=== PATIENT | male | born 1940 | race Caucasian/White ===

== ENCOUNTER → 2023-07-26 08:25 | Outpatient (REF) | payer MEDICARE, BC, SELFPAY ==
[2023-07-26 10:49] LABS: ALT (SGPT) 18 U/L (0-50); AST (SGOT) 29 U/L (17-59); Albumin 4.4 g/dl (3.5-5.0); Alkaline Phosphatase 47 U/L (38-126); Blood Urea Nitrogen 30 mg/dl (9-20); Calcium 9.2 mg/dl (8.4-10.2); Carbon Dioxide 30 mmol/L (22-30); Glucose 85 mg/dl (70-99); HDL Cholesterol 41 mg/dl; LDL Cholesterol, Calculated 26 mg/dl; Potassium 3.1 mmol/L (3.5-5.1); Sodium 139 mmol/L (135-145); Total Bilirubin 2.6 mg/dl (0.2-1.3); Total Cholesterol 82 mg/dl (50-199); Total Protein 7.1 g/dl (6.3-8.2); Triglyceride 79 mg/dl (10-149); Very Low Density Lipoprotein 15 mg/dl (0-30); eGFR > 60.00
[2023-07-26 10:54] LABS: Chloride 101 mmol/L (98-107)
== END ==
LOC: HWLAB 08:25
PROVIDERS: ATTENDING PHYSICIAN Internal Medicine Cardiovascular Disease; FAMILY PHYSICIAN Family Medicine
DX: I25.10 Atherosclerotic heart disease of native coronary artery without angina pectoris (principal)
CPT/HCPCS: 36415; 80053; 80061

== ENCOUNTER 2023-10-14 22:19 | Emergency (ER) | payer MEDICARE, BC, SELFPAY ==
[2023-10-14 22:19] VITALS: BMI 25.0
[2023-10-14 22:26] VITALS: BP 112/65
[2023-10-14 22:47] LABS: % Basophils 0.6 % (0-2); % Eosinophils 2.4 % (0-6); % Immature Granulocytes 0.5 % (0-0.5); % Lymphocytes 31.7 % (20.5-51.1); % Monocytes 9.4 % (1.7-9.3); % Neutrophils 55.4 % (42.2-75.2); Absolute Basophils 0.1 10^3/uL (0-0.2); Absolute Eosinophils 0.2 10^3/uL (0-0.7); Absolute Lymphocytes 2.6 10^3/uL (1.2-3.4); Absolute Monocytes 0.8 10^3/uL (0.1-0.6); Absolute Neutrophils 4.5 10^3/uL (1.4-6.5); Hematocrit 39.3 % (39.0-52.0); Hemoglobin 14.2 g/dL (13.0-18.0); Mean Corp Hgb Conc. 36.1 g/dL (33.0-37.0); Mean Corpuscular Hgb 31.6 pg (27.0-31.0); Mean Corpuscular Volume 87.3 fL (80.0-94.0); Mean Platelet Volume 10.2 fL (7.4-10.4); Nucleated Red Blood Cells % 0 % (-); Platelet Count 215 10^3/uL (130-400); Red Cell Dist. Width 13.2 % (11.5-14.5); White Blood Cell Count 8.2 10^3/uL (4.8-10.8)
[2023-10-14 23:10] LABS: ALT (SGPT) 21 U/L (0-50); AST (SGOT) 30 U/L (17-59); Albumin 4.3 g/dl (3.5-5.0); Alkaline Phosphatase 37 U/L (38-126); Blood Urea Nitrogen 31 mg/dl (9-20); Calcium 9.6 mg/dl (8.4-10.2); Carbon Dioxide 27 mmol/L (22-30); Chloride 102 mmol/L (98-107); Estimated Creatinine Clearance 71 ml/min; Glucose 105 mg/dl (70-99); Potassium 3.4 mmol/L (3.5-5.1); Sodium 139 mmol/L (135-145); Total Bilirubin 1.5 mg/dl (0.2-1.3); Total Protein 7.1 g/dl (6.3-8.2); eGFR > 60.00
[2023-10-14 23:13] LABS: Troponin I < 0.012 ng/ml
--- NOTE | 2023-10-14 23:22 | ED.GENMED ---
History of Present Illness
General
Chief Complaint: Chest Pain
Source: patient
Exam Limitations: none
Time Seen by Provider: 10/14/23 22:39
Travel History
Have you had any contact with someone who has COVID-19?: No
Do you have any symptoms of coronavirus? Fever > 100 degrees, chills, cough, shortness of breath, sore throat, loss of taste or smell, muscle aches, or headache?: No
History of Present Illness
History of Present Illness:
This is a 83 year old male that comes in with c/o right sided chest pain. States that around 7-7:30pm he started with this right sided chest pain. States that this only last seconds and it comes and goes. States that when he takes a deep breath he
had increased pain. States that he has no pain on the left side. States that at 8;30pm he took a nitro. States that when EMS got there he was given a second nitro and 4 baby aspirin. States that it still comes and goes but he is pain free now.
States that this is the same type of pain that he had in the past when he had an SC. Denies any fever, chills, SOB, abd pain, nausea, vomiting, diarrhea, headache, dizziness, urinary burning.
Past History
Past History
ED Past Medical History: Cancer (Basal cell skin ), COPD, GERD, HTN, Hypercholesterolemia, SC, Psychiatric (Anxiety) and Other (Sleep apnea Bipap, Pancreatitis, Rosacia)
ED Past Surgical History: Cardiac (Stent), Cholecystectomy, Orthopedic (Spinal fusion X 2), Urological (TURP) and Other (Cataracts, Hernia)
Social History
Tobacco: Former smoker
Alcohol: None
Drug: None
Personal:
Living: with family
Employment: Retired
Family History
Family History: Other
Review of Systems
Review of Systems
All Other Systems: ROS reviewed and negative except as documented in HPI and ROS
Constitutional: Reports no symptoms; Denies fever or chills
EENT: Reports no symptoms
Respiratory: Reports no symptoms; Denies cough or trouble breathing
Cardiac: Reports chest pain
ABD/GI: Reports no symptoms; Denies abdominal pain, nausea, vomiting or diarrhea
: Reports no symptoms; Denies dysuria, frequency or urgency
Musculoskeletal: Reports no symptoms
Skin: Reports no symptoms
Neurological: Reports no symptoms; Denies dizzy or headache
Psychiatric: Reports no symptoms
Phy Exam
General Physical Exam
General Presentation: no apparent distress
General age: appears stated age
General Skin: warm and dry
General Habitus: elderly
General Mental: alert
General Hydration: appears well hydrated
ENT Exam
ENT Exam: TM's normal, pharynx normal and neck supple
Eye Exam
Eye Exam: EOMI
Cardiovascular Exam
Cardiovascular Exam: regular rate/rhythm, no edema, no murmur and normal peripheral pulses
Pulmonary Exam
Pulmonary Exam: lungs clear, no respiratory distress, no rales, chest non tender, no crackles, no rhonchi, no wheezing and no cough
Gastrointestinal Exam
Gastrointestinal Exam: normal bowel sounds, non tender, soft, no organomegaly, no pulsatile mass and non distended
Musculoskeletal Exam
Musculoskeletal Exam: full ROM and no edema
Skin Exam
Skin Exam: normal color, warm/dry, no rash and no petechia
Psychiatric Exam
Psychiatric Exam: normal mood/affect
Scores
Heart Score for Chest Pain Patients
STEMI patient?: No
History: Slightly or Non-Suspicious
ECG: Normal
Age: >/= 65 years
Risk Factors: >/= 3 Risk Factors or History of CAD
Troponin: </= Normal Limit
Heart Score for Chest Pain Patients: 4
Heart Score Risk: 20.3% MACE over next 6 weeks
Course
Orders/Labs/Results
Orders:
Orders
10/14/23 22:20
Electrocardiogram (*1) Urgent
Reason for Study: Chest Pain
Cardiac Monitoring- Treatment ONCE
EKG- Treatment ONCE
IV Insert/Care/Rem.- Treatment PRN
O2 Therapy [RESP] Urgent
Titrate/Wean O2 to maintain O2 sat greater than (%): 90
Special Instructions: Maintain sats >/=90%
Pulse Ox/spot Check [RESP] Urgent
Quantity: 1
Special Instructions: ON ROOM AIR
10/14/23 22:39
Complete Blood Count/With Diff Urgent
Comprehensive Metabolic Panel Urgent
Troponin I Urgent
10/14/23 23:21
EKG- Treatment ONCE
10/14/23 23:22
CR Chest - 2 Views Urgent
Comment:
Reason For Exam: Chest pain right sided
10/14/23 23:25
D-Dimer Urgent
10/15/23 01:27
Troponin I Urgent
10/15/23 01:30
Electrocardiogram (*1) Urgent
Reason for Study: Chest Pain
Other Reason for Exam: Repeat with Troponin
Abnormal Lab Results
10/14/23
22:39
RBC 4.50 L 10^6/uL
(4.70-6.10)
MCH 31.6 H pg
(27.0-31.0)
Absolute Monos (auto) 0.8 H 10^3/uL
(0.1-0.6)
Monocytes % 9.4 H %
(1.7-9.3)
Potassium 3.4 L mmol/L
(3.5-5.1)
BUN 31 H mg/dl
(9-20)
Glucose 105 H mg/dl
(70-99)
Total Bilirubin 1.5 H mg/dl
(0.2-1.3)
Alkaline Phosphatase 37 L U/L
(38-126)
10/14/23 22:39
10/14/23 22:39
Dehydration, Glucose nonfasting, Total mariajose slightly elevated. Troponin <0.012, D-dimer negative at 0.47
Second Troponin <0.012
Vital Signs
Initial and Last Documented VS:
Initial Vital Signs
Temp Pulse Resp BP Pulse Ox
98.8 F 52 18 112/65 96
10/14/23 22:26 10/14/23 22:26 10/14/23 22:26 10/14/23 22:26 10/14/23 22:26
Last Documented Vital Signs
Temp Pulse Resp BP Pulse Ox
98.8 F 49 15 110/49 96
10/14/23 22:26 10/15/23 00:30 10/15/23 00:30 10/15/23 00:05 10/15/23 00:30
Robotic Maintenance Technician consulted with Physician
Robotic Maintenance Technician consulted with physician?: Yes
Name of Physician Consulted: Dr Arteaag
MDM/Problems Addressed
Differential Diagnosis Includes:
PE, Musculoskeletal chest wall pain. Coronary syndrome
MDM/Problems Addressed:
This is a 83 year old male that comes in with c/o right sided chest pain that comes and goes. States that he took Nitro at home and then he was given Nitro by EMS and baby aspirin. State that this is similar to when he had a heart attack.
Will get labs, ECG, chest x-ray.
Repeat ECG: rate 46, Sinus bradycardia, Left axis. RBBB, T wave Inversion III, aVR, aVF, V2,
Back into see patient. Patient sleeping. Awakened and explained that his Second troponin was also normal. Will discharge patient home and have patient follow up with his Senior Business Intelligence Analyst. Patoent to return with increased or changing pain
Chronic conditions affecting care: CAD
Acute Exacerbation and/or Progression of Chronic Illness: CAD
*Radiology
Radiology exam reviewed: preliminary read by ED provider (Chest- Negative for acute disease of the chest )
*Pulse Oximetry
Patient hypoxic: no
*EKG
Interpreted by ED Provider?: Yes
Heart Rate: 53
Rate: bradycardiac
Rhythm: sinus
[place]: left axis deviation
Interval: normal interval
QRS Pattern: right bundle branch block (Incomplete)
Ischemia: T-wave inversion (III, aVR, )
*Medical Records Custodian Interpretation
Rate: bradycardiac
Heart Rate: 51
Rhythm: sinus
*Critical Care Note
Total Time (30-74mins, 75-104mins- exclusive of procedures): Not Applicable
ED Attending Note
-
Portions of this chart may have been created with voice recognition software.� Occasional wrong word or��sound alike� substitutions may have occurred due to the inherent limitations of voice recognition software.
Discharge Plan
Departure
Patient Disposition: Home (Routine Discharge)
Date of Disposition: 10/15/23
Time of Disposition: 02:15
Patient with high blood pressure during this ER visit?: No
Condition: Good
Covid-19: Not Applicable
Discharge Problem:
Chest pain
Instructions: Chest Pain NON-DHP Senior Business Intelligence Analyst Follow Up
Prescriptions:
No Action
alprazolam 0.5 MG tablet
0.5 mg PO DAILY
Latanoprost
2.5 mg DROP DAILY
losartan 50 MG tablet
50 mg PO DAILY 0RF
atorvastatin 80 MG tablet
80 mg PO QPM Qty: 90 3RF
clopidogrel 75 MG tablet
75 mg PO DAILY Qty: 90 3RF
aspirin 81 MG tablet,delayed release (DR/EC)
81 mg PO DAILY 0RF
pantoprazole 40 MG tablet,delayed release (DR/EC)
40 mg PO DAILY Qty: 90 3RF
metoprolol succinate 25 MG tablet extended release 24 hr
25 mg PO DAILY Qty: 90 3RF
fluoxetine 20 MG capsule
20 mg PO DAILY Qty: 0 0RF
Rx Instructions:
Do not take at same time as Plavix
oxycodone-acetaminophen 5 MG/325 MG tablet
1 tab PO Q4HPRN PRN (Reason: pain) Qty: 10 0RF
Referrals:
PRIVATE,PHYSICIAN [Family Provider] -
Activity Restrictions/Additional Instructions:
As discussed, your blood work shows that you are dehydrated. If you are not on a fluid restriction, please increase your water intake to 8-8oz glasses daily. Your Both Troponin and D-dimer are negative. Your chest x-ray is normal. Follow up with
your Senior Business Intelligence Analyst for further evaluation. IF YOU HAVE INCREASED OR CHANGING PAIN, OR YOU HAVE ANY OTHER CONCERNS PLEASE RETURN TO THE EMERGENCY ROOM.
Interventions
Interventions:
*Risk Screen - Suicide Last Done: 10/14/23 22:26
*General Assessment Last Done: 10/14/23 22:26
*Neglect/Abuse Screening Last Done: 10/14/23 22:26
*ED COVID-19 Vaccine History Last Done: 10/14/23 22:26
Discharge Date and Time
Print Language: MALDIVIAN
[2023-10-14 23:48] LABS: D-Dimer 0.47 ug/mlFEU (0.00-0.50)
[2023-10-15 00:05] VITALS: BP 110/49
[2023-10-15 01:00] VITALS: BP 121/99
[2023-10-15 02:01] LABS: Troponin I < 0.012 ng/ml
== END 2023-10-15 02:55 | disposition home or self-care (01) ==
LOC: EMR 22:19
PROVIDERS: Clinical Nurse Specialist Family Health; Emergency Medicine; EMERGENCY PHYSICIAN Emergency Medicine
DX: R07.89 Other chest pain (principal); E86.0 Dehydration; I45.10 Unspecified right bundle-branch block; I10 Essential (primary) hypertension; I25.10 Atherosclerotic heart disease of native coronary artery without angina pectoris; G47.30 Sleep apnea, unspecified; F41.9 Anxiety disorder, unspecified; E78.00 Pure hypercholesterolemia, unspecified; J44.9 Chronic obstructive pulmonary disease, unspecified; K21.9 Gastro-esophageal reflux disease without esophagitis; I25.2 Old myocardial infarction; Z79.82 Long term (current) use of aspirin; Z95.5 Presence of coronary angioplasty implant and graft; Z87.891 Personal history of nicotine dependence; Z98.1 Arthrodesis status; Z90.49 Acquired absence of other specified parts of digestive tract
CPT/HCPCS: 99285; 94760; 71046; 80053; 84484; 85025; 85379; 93005

== ENCOUNTER → 2023-12-22 10:21 | Outpatient (REF) | payer MEDICARE, BC, SELFPAY ==
[2023-12-22 13:13] LABS: PSA, Total - Diagnostic 2.57 ng/ml (0.0-4.0)
== END ==
LOC: HWLAB 10:21
PROVIDERS: ATTENDING PHYSICIAN Urology
DX: N40.1 Benign prostatic hyperplasia with lower urinary tract symptoms (principal); R39.14 Feeling of incomplete bladder emptying; R35.0 Frequency of micturition
CPT/HCPCS: 36415; 84153

== ENCOUNTER → 2023-12-29 08:51 | Outpatient (REF) | payer MEDICARE, BC, SELFPAY ==
[2023-12-29 14:02] LABS: HDL Cholesterol 36 mg/dl; LDL Cholesterol, Calculated 78 mg/dl; Total Cholesterol 157 mg/dl (50-199); Triglyceride 215 mg/dl (10-149); Very Low Density Lipoprotein 43 mg/dl (0-30)
== END ==
LOC: HWLAB 08:51
DX: E78.5 Hyperlipidemia, unspecified (principal)
CPT/HCPCS: 36415; 80061

== ENCOUNTER → 2024-01-27 08:18 | Outpatient (REF) | payer MEDICARE, BC, SELFPAY ==
[2024-01-27 10:48] LABS: ALT (SGPT) 21 U/L (0-50); AST (SGOT) 28 U/L (17-59); Albumin 4.4 g/dl (3.5-5.0); Alkaline Phosphatase 39 U/L (38-126); Blood Urea Nitrogen 27 mg/dl (9-20); Calcium 9.4 mg/dl (8.4-10.2); Carbon Dioxide 27 mmol/L (22-30); Chloride 100 mmol/L (98-107); Glucose 94 mg/dl (70-99); HDL Cholesterol 37 mg/dl; LDL Cholesterol, Calculated 81 mg/dl; Potassium 3.6 mmol/L (3.5-5.1); Sodium 142 mmol/L (135-145); Total Bilirubin 2.6 mg/dl (0.2-1.3); Total Cholesterol 154 mg/dl (50-199); Total Protein 7.1 g/dl (6.3-8.2); Triglyceride 180 mg/dl (10-149); Very Low Density Lipoprotein 36 mg/dl (0-30); eGFR > 60.00
== END ==
LOC: HWLAB 08:18
PROVIDERS: ATTENDING PHYSICIAN Internal Medicine Cardiovascular Disease; FAMILY PHYSICIAN Internal Medicine
DX: E78.5 Hyperlipidemia, unspecified (principal); I25.10 Atherosclerotic heart disease of native coronary artery without angina pectoris
CPT/HCPCS: 36415; 80053; 80061

== ENCOUNTER → 2024-06-08 08:06 | Outpatient (REF) | payer MEDICARE, BC, SELFPAY ==
[2024-06-08 11:14] LABS: HDL Cholesterol 40 mg/dl; LDL Cholesterol, Calculated 37 mg/dl; Total Cholesterol 100 mg/dl (50-199); Triglyceride 118 mg/dl (10-149); Very Low Density Lipoprotein 23 mg/dl (0-30)
== END ==
LOC: HWLAB 08:06
PROVIDERS: ATTENDING PHYSICIAN Internal Medicine
DX: E78.5 Hyperlipidemia, unspecified (principal)
CPT/HCPCS: 36415; 80061

== ENCOUNTER → 2024-07-25 08:44 | Outpatient (REF) | payer MEDICARE, BC, SELFPAY | LOC: DHSLP 08:44 | PROVIDERS: ATTENDING PHYSICIAN Internal Medicine | DX: G47.33 Obstructive sleep apnea (adult) (pediatric) (principal) | CPT/HCPCS: 95811 ==

== ENCOUNTER → 2024-07-28 08:29 | Outpatient (REF) | payer MEDICARE, BC, SELFPAY ==
[2024-07-28 12:41] LABS: ALT (SGPT) 21 U/L (0-50); AST (SGOT) 24 U/L (17-59); Albumin 4.7 g/dl (3.5-5.0); Alkaline Phosphatase 39 U/L (38-126); Blood Urea Nitrogen 30 mg/dl (9-20); Calcium 9.7 mg/dl (8.4-10.2); Carbon Dioxide 34 mmol/L (22-30); Chloride 96 mmol/L (98-107); Glucose 83 mg/dl (70-99); HDL Cholesterol 40 mg/dl; LDL Cholesterol, Calculated 33 mg/dl; Potassium 4.1 mmol/L (3.5-5.1); Sodium 139 mmol/L (135-145); Total Bilirubin 1.5 mg/dl (0.2-1.3); Total Cholesterol 102 mg/dl (50-199); Total Protein 7.2 g/dl (6.3-8.2); Triglyceride 145 mg/dl (10-149); Very Low Density Lipoprotein 29 mg/dl (0-30); eGFR > 60.00
== END ==
LOC: HWLAB 08:29
PROVIDERS: ATTENDING PHYSICIAN Internal Medicine Cardiovascular Disease; FAMILY PHYSICIAN Internal Medicine
DX: I10 Essential (primary) hypertension (principal); E78.5 Hyperlipidemia, unspecified
CPT/HCPCS: 36415; 80053; 80061

== ENCOUNTER → 2024-10-18 12:49 | Outpatient (REF) | payer MEDICARE, BC, SELFPAY ==
[2024-10-18 15:58] LABS: Blood Urea Nitrogen 19 mg/dl (9-20)
== END ==
LOC: HWLAB 12:49
PROVIDERS: ATTENDING PHYSICIAN Specialist; FAMILY PHYSICIAN Internal Medicine
DX: M54.17 Radiculopathy, lumbosacral region (principal)
CPT/HCPCS: 36415; 82565; 84520

== ENCOUNTER → 2024-10-19 13:48 | Outpatient (REF) | payer MEDICARE, BC, SELFPAY ==
[2024-10-19 17:19] LABS: PSA, Total - Diagnostic 2.28 ng/ml (0.0-4.0)
== END ==
LOC: HWLAB 13:48
PROVIDERS: ATTENDING PHYSICIAN Specialist; FAMILY PHYSICIAN Internal Medicine
DX: N40.1 Benign prostatic hyperplasia with lower urinary tract symptoms (principal)
CPT/HCPCS: 36415; 84153